=== PATIENT | female | born 1985 | race Caucasian/White ===

== ENCOUNTER 2019-04-17 00:45 | Emergency (ER) | payer OTHER ==
[~2019-04-17] VITALS: Ht 175.3 cm; Wt 97.5 kg
[~2019-04-17 00:45] MED LIST: AMIT10 PO; CEPH500 PO; CYCL10 PO; Cymbalta20 MG PO; Diflucan200 MG PO; Naprosyn500 MG PO; Norco 5-325 Ta1 EACH PO; OXYC5; SOMA350 MG PO; Zofran Odt8 MG SL
== END 2019-04-17 02:22 | disposition left against medical advice (07) ==
LOC: ER 00:45
DX: Z53.21 Procedure and treatment not carried out due to patient leaving prior to being seen by health care provider (principal)